=== PATIENT | male | born 2000 | race Caucasian/White ===

== ENCOUNTER 2022-02-25 15:25 | Emergency (ER) | payer SELFPAY ==
[~2022-02-25 15:25] MED LIST: ZITHROMAX250 MG PO; ZOFRAN4 MG PO
[2022-02-25] MEDS ORDERED: IBUPROFEN600 MG PO (16:41)
== END 2022-02-25 17:08 | disposition home or self-care (01) ==
LOC: ER1 15:25
DX: S90.111A Contusion of right great toe without damage to nail, initial encounter (principal); F17.290 Nicotine dependence, other tobacco product, uncomplicated; W18.11XA Fall from or off toilet without subsequent striking against object, initial encounter
CPT/HCPCS: 73630; 99283